=== PATIENT | female | born 1990 | race Caucasian/White ===

== ENCOUNTER → 2017-01-22 | Outpatient (CLI) | payer OTHER ==
[~2017-01-22] MED LIST: ALLEGRA180 MG PO; AMOXIL500 MG PO; BIRTH CONTROL1 EAC1 PO; GEODON60 MG PO; MOTRIN600 MG PO; PERCOCET 325 MG1 TAB PO; REMERON15 M1 PO; ZOFRAN4 MG PO; ZYRTEC10 M1 PO
== END | disposition home or self-care (01) ==
LOC: RAD 16:08
DX: J40 Bronchitis, not specified as acute or chronic (principal); F17.200 Nicotine dependence, unspecified, uncomplicated; J45.909 Unspecified asthma, uncomplicated

== ENCOUNTER → 2017-06-20 | Outpatient (CLI) | payer MEDICARE | END | disposition home or self-care (01) | LOC: LAB 14:21 | DX: Z51.81 Encounter for therapeutic drug level monitoring (principal); Z79.899 Other long term (current) drug therapy ==

== ENCOUNTER 2017-10-16 11:31 | Emergency (ER) | payer MEDICARE ==
[~2017-10-16] VITALS: Ht 165.1 cm; Wt 56.7 kg
[2017-10-16 11:31] VITALS: BP 116/79
== END 2017-10-16 14:05 | disposition home or self-care (01) ==
LOC: ED 11:31
DX: R21 Rash and other nonspecific skin eruption (principal); T78.40XA Allergy, unspecified, initial encounter; Z88.0 Allergy status to penicillin; Z88.1 Allergy status to other antibiotic agents; Z91.040 Latex allergy status; Z79.899 Other long term (current) drug therapy; Y92.9 Unspecified place or not applicable

== ENCOUNTER → 2017-12-24 | Outpatient (CLI) | payer MEDICARE, OTHER | END | disposition home or self-care (01) | LOC: LAB 13:46 | DX: Z51.81 Encounter for therapeutic drug level monitoring (principal); Z79.899 Other long term (current) drug therapy ==

== ENCOUNTER → 2018-03-18 | Outpatient (CLI) | payer MEDICARE ==
[2018-03-18 11:31] LABS: HEMATOCRIT 44.8 % (37.0-47.0); HEMOGLOBIN 15.1 g/dl (12.0-16.0); MEAN CELL VOLUME 88.2 fl (81.0-99.0); MEAN CORPUSCULAR HGB 29.7 pg (27.0-31.0); MEAN CORPUSCULAR HGB CONC 33.7 g/dl (33.0-37.0); MEAN PLATELET VOLUME 14.1 fl (9.6-12.3); RED BLOOD COUNT 5.08 10*6/uL (4.10-5.10); RED CELL DISTRI WIDTH 12.3 % (0-14.5); WHITE BLOOD COUNT 7.8 10*3/uL (4.8-10.8)
[2018-03-18 11:43] LABS: ALBUMIN 3.6 gm/dl (3.1-4.5); BUN 8 mg/dl (7-24); CHLORIDE 109 mmol/L (98-107); CHOLESTEROL 156 mg/dL (<200); CREATININE 0.89 mg/dL (0.55-1.02); POTASSIUM 3.5 mmol/L (3.5-5.1); SGOT/AST 8 IU/L (3-35); SGPT/ALT 20 U/L (12-78); SODIUM 141 mmol/L (136-145); TRIGLYCERIDES 117 mg/dl (<150); VLDL CHOLESTEROL 23 mg/dL (6-40)
[2018-03-18 11:47] LABS: ALKALINE PHOSPHATASE 52 U/L (45-117); CPK 33 U/L (26-192); HDL CHOLESTEROL 40 mg/dl (40-60); LDL CHOLESTEROL 93 mg/dL (9-159); TOTAL PROTEIN 7.4 gm/dL (6.4-8.2)
[2018-03-18 12:16] LABS: VITAMIN D, 25-HYDROXY 9.5 ng/mL (30-100)
[2018-03-19 08:07] LABS: RHEUMATOID ARTHRITIS FACTOR <10.0 IU/mL (0.0-13.9)
== END | disposition home or self-care (01) ==
LOC: LAB 10:57
PROVIDERS: Family Medicine
DX: Z13.220 Encounter for screening for lipoid disorders (principal); J45.909 Unspecified asthma, uncomplicated; E55.9 Vitamin D deficiency, unspecified; M79.10 Myalgia, unspecified site; R53.83 Other fatigue; M25.50 Pain in unspecified joint; Z79.899 Other long term (current) drug therapy

== ENCOUNTER → 2018-03-25 | Outpatient (CLI) | payer MEDICARE | END | disposition home or self-care (01) | LOC: LAB 15:37 | DX: R76.0 Raised antibody titer (principal) ==

== ENCOUNTER → 2018-07-06 | Outpatient (CLI) | payer MEDICARE ==
[2018-07-06 12:13] LABS: BASO % 0.7 % (0.0-1.0); EOS # 0.6 10*3/uL (0.0-0.4); EOS % 9.3 % (1.0-4.0); HEMATOCRIT 44.4 % (37.0-47.0); HEMOGLOBIN 14.6 g/dl (12.0-16.0); LYMPH # 2.1 10*3/uL (1.3-4.4); LYMPH % 34.6 % (27.0-41.0); MEAN CELL VOLUME 89.7 fl (81.0-99.0); MEAN CORPUSCULAR HGB 29.5 pg (27.0-31.0); MEAN CORPUSCULAR HGB CONC 32.9 g/dl (33.0-37.0); MEAN PLATELET VOLUME 13.6 fl (9.6-12.3); MONO # 0.5 10*3/uL (0.1-1.0); MONO % 7.5 % (3.0-9.0); NEUT # 2.9 10*3/uL (2.3-7.9); NEUT % 47.6 % (47.0-73.0); PLATELET COUNT AUTOMATED 128 10*3/uL (130-400); RED BLOOD COUNT 4.95 10*6/uL (4.10-5.10); RED CELL DISTRI WIDTH 12.4 % (0-14.5); WHITE BLOOD COUNT 6.1 10*3/uL (4.8-10.8)
[2018-07-06 12:42] LABS: ALBUMIN 3.8 gm/dl (3.1-4.5); ALKALINE PHOSPHATASE 55 U/L (45-117); BUN 8 mg/dl (7-24); CREATININE 0.85 mg/dL (0.55-1.02); SGOT/AST 10 IU/L (3-35); SGPT/ALT 20 U/L (12-78); TOTAL PROTEIN 7.2 gm/dL (6.4-8.2)
[2018-07-06 12:54] LABS: CHLORIDE 110 mmol/L (98-107); POTASSIUM 4.1 mmol/L (3.5-5.1); SODIUM 143 mmol/L (136-145)
== END | disposition home or self-care (01) ==
LOC: LAB 11:35
PROVIDERS: Family Medicine
DX: E22.1 Hyperprolactinemia (principal); F41.1 Generalized anxiety disorder

== ENCOUNTER 2018-09-04 00:35 | Emergency (ER) | payer MEDICARE ==
[~2018-09-04] VITALS: Ht 149.8 cm; Wt 54.4 kg
[2018-09-04] MEDS ORDERED: SPRINTEC 35 MCG1 TA1 PO (01:11)
== END 2018-09-04 01:52 | disposition home or self-care (01) ==
LOC: ED 00:35
DX: F45.8 Other somatoform disorders (principal); K21.9 Gastro-esophageal reflux disease without esophagitis; Z88.0 Allergy status to penicillin; Z88.1 Allergy status to other antibiotic agents; Z91.018 Allergy to other foods; Z91.040 Latex allergy status; Z79.899 Other long term (current) drug therapy

== ENCOUNTER 2019-01-11 16:44 | Emergency (ER) | payer MEDICARE ==
[~2019-01-11] VITALS: Ht 152.4 cm; Wt 52.2 kg
[~2019-01-11 16:44] MED LIST changes: +SPRINTEC 35 MCG1 TA1 PO
[2019-01-11 16:45] VITALS: BP 137/86
[2019-01-11] MEDS ORDERED: MEDROL DOSEPAK4 MG PO (18:27)
== END 2019-01-11 18:39 | disposition home or self-care (01) ==
LOC: ED 16:44
DX: T78.1XXA Other adverse food reactions, not elsewhere classified, initial encounter (principal); R07.0 Pain in throat; Z88.0 Allergy status to penicillin; Z88.1 Allergy status to other antibiotic agents; Z91.018 Allergy to other foods; Z88.8 Allergy status to other drugs, medicaments and biological substances; Z91.040 Latex allergy status; Z79.899 Other long term (current) drug therapy; X58.XXXA Exposure to other specified factors, initial encounter

== ENCOUNTER 2019-02-03 23:35 | Emergency (ER) | payer MEDICARE ==
[~2019-02-03] VITALS: Ht 152.4 cm; Wt 51.3 kg
[~2019-02-03 23:35] MED LIST changes: +MEDROL DOSEPAK4 MG PO
[2019-02-03 23:37] VITALS: BP 156/88
[2019-02-04] MEDS ORDERED: ALLEGRA ALLERG180 M2 PO (00:47)
[2019-02-04] MEDS ORDERED: PROAIR HFA8.5 GM INH (00:47)
== END 2019-02-04 01:04 | disposition home or self-care (01) ==
LOC: ED 23:35
DX: F41.9 Anxiety disorder, unspecified (principal); R07.0 Pain in throat; Z88.0 Allergy status to penicillin; Z88.1 Allergy status to other antibiotic agents; Z91.018 Allergy to other foods; Z88.8 Allergy status to other drugs, medicaments and biological substances; Z91.040 Latex allergy status; Z79.899 Other long term (current) drug therapy

== ENCOUNTER 2019-02-11 17:18 | Emergency (ER) | payer MEDICARE ==
[~2019-02-11] VITALS: Ht 152.4 cm; Wt 51.3 kg
[~2019-02-11 17:18] MED LIST changes: +ALLEGRA ALLERG180 M2 PO; +PROAIR HFA8.5 GM INH
[2019-02-11 17:20] VITALS: BP 153/86
== END 2019-02-11 19:15 | disposition home or self-care (01) ==
LOC: ED 17:18
DX: S40.861A Insect bite (nonvenomous) of right upper arm, initial encounter (principal); R11.0 Nausea; R07.0 Pain in throat; Z88.0 Allergy status to penicillin; Z88.1 Allergy status to other antibiotic agents; Z91.018 Allergy to other foods; Z91.040 Latex allergy status; Z88.8 Allergy status to other drugs, medicaments and biological substances; Z79.899 Other long term (current) drug therapy; W57.XXXA Bitten or stung by nonvenomous insect and other nonvenomous arthropods, initial encounter; Y93.89 Activity, other specified; Y92.89 Other specified places as the place of occurrence of the external cause; Y99.8 Other external cause status

== ENCOUNTER 2019-02-12 21:54 | Emergency (ER) | payer MEDICARE ==
[~2019-02-12] VITALS: Ht 152.4 cm; Wt 51.3 kg
[2019-02-12 22:02] VITALS: BP 151/93
== END 2019-02-12 23:55 | disposition home or self-care (01) ==
LOC: ED 21:54
DX: T78.49XA Other allergy, initial encounter (principal); R11.2 Nausea with vomiting, unspecified; R07.0 Pain in throat; Z91.018 Allergy to other foods; Z88.0 Allergy status to penicillin; Z88.1 Allergy status to other antibiotic agents; Z91.040 Latex allergy status; Z88.8 Allergy status to other drugs, medicaments and biological substances; Z79.899 Other long term (current) drug therapy; X58.XXXA Exposure to other specified factors, initial encounter

== ENCOUNTER 2019-02-14 16:48 | Emergency (ER) | payer MEDICARE ==
[~2019-02-14] VITALS: Ht 152.4 cm; Wt 50.3 kg
[2019-02-14 20:03] VITALS: BP 150/90
[2019-02-14] MEDS ORDERED: MEDROL DOSEPAK4 MG PO (20:21)
== END 2019-02-14 20:25 | disposition home or self-care (01) ==
LOC: ED 16:48
DX: J45.909 Unspecified asthma, uncomplicated (principal); T78.1XXA Other adverse food reactions, not elsewhere classified, initial encounter; R06.02 Shortness of breath; R22.0 Localized swelling, mass and lump, head; F17.200 Nicotine dependence, unspecified, uncomplicated; Z79.899 Other long term (current) drug therapy; Z88.0 Allergy status to penicillin; Z88.1 Allergy status to other antibiotic agents; Z91.018 Allergy to other foods; Z91.040 Latex allergy status; Z88.8 Allergy status to other drugs, medicaments and biological substances; X58.XXXA Exposure to other specified factors, initial encounter

== ENCOUNTER 2019-02-15 12:50 | Emergency (ER) | payer MEDICARE ==
[~2019-02-15] VITALS: Ht 152.4 cm; Wt 50.3 kg
[2019-02-15 12:54] VITALS: BP 148/96
== END 2019-02-15 14:40 | disposition home or self-care (01) ==
LOC: ED 12:50
DX: R23.2 Flushing (principal); R22.0 Localized swelling, mass and lump, head; L53.9 Erythematous condition, unspecified; Z88.0 Allergy status to penicillin; Z88.1 Allergy status to other antibiotic agents; Z91.040 Latex allergy status; Z91.018 Allergy to other foods; Z88.8 Allergy status to other drugs, medicaments and biological substances; Z79.899 Other long term (current) drug therapy

== ENCOUNTER 2019-02-17 07:55 | Emergency (ER) | payer MEDICARE ==
[~2019-02-17] VITALS: Ht 152.4 cm; Wt 50.3 kg
[2019-02-17 07:57] VITALS: BP 122/84
[2019-02-17] MEDS ORDERED: BREO ELLIPTA 11 EACH INH (08:48)
== END 2019-02-17 09:13 | disposition home or self-care (01) ==
LOC: ED 07:55
DX: R09.81 Nasal congestion (principal); Z88.0 Allergy status to penicillin; Z88.1 Allergy status to other antibiotic agents; Z91.018 Allergy to other foods; Z91.040 Latex allergy status; Z79.899 Other long term (current) drug therapy

== ENCOUNTER 2019-02-25 00:50 | Emergency (ER) | payer MEDICARE ==
[~2019-02-25] VITALS: Ht 152.4 cm; Wt 49.0 kg
[~2019-02-25 00:50] MED LIST changes: +BREO ELLIPTA 11 EACH INH
[2019-02-25 00:51] VITALS: BP 149/10
== END 2019-02-25 01:36 | disposition home or self-care (01) ==
LOC: ED 00:50
DX: T78.40XA Allergy, unspecified, initial encounter (principal); Z79.899 Other long term (current) drug therapy; Z88.0 Allergy status to penicillin; Z88.1 Allergy status to other antibiotic agents; Z91.040 Latex allergy status; Z91.018 Allergy to other foods; Y92.89 Other specified places as the place of occurrence of the external cause

== ENCOUNTER 2019-03-05 01:17 | Emergency (ER) | payer MEDICARE ==
[~2019-03-05] VITALS: Ht 152.4 cm; Wt 49.0 kg
[2019-03-05 01:18] VITALS: BP 152/91
== END 2019-03-05 02:16 | disposition home or self-care (01) ==
LOC: ED 01:17
DX: J06.9 Acute upper respiratory infection, unspecified (principal); F41.9 Anxiety disorder, unspecified; F17.200 Nicotine dependence, unspecified, uncomplicated; Z91.19 Patient's noncompliance with other medical treatment and regimen; Z88.0 Allergy status to penicillin; Z88.1 Allergy status to other antibiotic agents; Z91.018 Allergy to other foods; Z88.8 Allergy status to other drugs, medicaments and biological substances; Z79.899 Other long term (current) drug therapy

== ENCOUNTER 2019-03-08 16:01 | Emergency (ER) | payer MEDICARE ==
[~2019-03-08] VITALS: Ht 152.4 cm; Wt 49.0 kg
[2019-03-08 16:01] VITALS: BP 143/80
== END 2019-03-08 17:35 | disposition home or self-care (01) ==
LOC: ED 16:01
DX: S60.467A Insect bite (nonvenomous) of left little finger, initial encounter (principal); Z88.0 Allergy status to penicillin; Z88.1 Allergy status to other antibiotic agents; Z91.018 Allergy to other foods; Z91.040 Latex allergy status; Z79.899 Other long term (current) drug therapy; W57.XXXA Bitten or stung by nonvenomous insect and other nonvenomous arthropods, initial encounter; Y93.89 Activity, other specified; Y92.89 Other specified places as the place of occurrence of the external cause; Y99.8 Other external cause status

== ENCOUNTER 2019-03-10 19:06 | Emergency (ER) | payer MEDICARE ==
[~2019-03-10] VITALS: Wt 49.0 kg
[2019-03-10 19:21] VITALS: BP 128/74
== END 2019-03-10 19:48 | disposition home or self-care (01) ==
LOC: ED 19:06
DX: Z00.00 Encounter for general adult medical examination without abnormal findings (principal); R22.0 Localized swelling, mass and lump, head; Z79.899 Other long term (current) drug therapy; Z88.0 Allergy status to penicillin; Z88.1 Allergy status to other antibiotic agents; Z91.018 Allergy to other foods; Z91.040 Latex allergy status

== ENCOUNTER 2019-03-15 03:52 | Emergency (ER) | payer MEDICARE ==
[~2019-03-15] VITALS: Ht 152.4 cm; Wt 47.6 kg
[2019-03-15 03:53] VITALS: BP 144/93
[2019-03-15] MEDS ORDERED: XANAX0.25 MG PO (04:51)
== END 2019-03-15 05:10 | disposition home or self-care (01) ==
LOC: ED 03:52
DX: F41.1 Generalized anxiety disorder (principal); F41.0 Panic disorder [episodic paroxysmal anxiety]; Z79.899 Other long term (current) drug therapy; F20.0 Paranoid schizophrenia; F12.10 Cannabis abuse, uncomplicated

== ENCOUNTER 2019-03-24 01:59 | Emergency (ER) | payer MEDICARE ==
[~2019-03-24] VITALS: Ht 152.4 cm; Wt 47.6 kg
[~2019-03-24 01:59] MED LIST changes: +XANAX0.25 MG PO
[2019-03-24 02:01] VITALS: BP 139/95
== END 2019-03-24 02:48 | disposition home or self-care (01) ==
LOC: ED 01:59
DX: J02.9 Acute pharyngitis, unspecified (principal); J45.909 Unspecified asthma, uncomplicated; F17.200 Nicotine dependence, unspecified, uncomplicated; Z88.0 Allergy status to penicillin; Z88.1 Allergy status to other antibiotic agents; Z91.018 Allergy to other foods; Z91.040 Latex allergy status; Z88.8 Allergy status to other drugs, medicaments and biological substances; Z79.899 Other long term (current) drug therapy

== ENCOUNTER 2019-04-24 17:04 | Emergency (ER) | payer MEDICARE ==
[~2019-04-24] VITALS: Ht 152.4 cm; Wt 49.4 kg
[2019-04-24 17:06] VITALS: BP 146/98
== END 2019-04-24 18:00 | disposition home or self-care (01) ==
LOC: ED 17:04
DX: T78.49XA Other allergy, initial encounter (principal); Z91.018 Allergy to other foods; Z91.048 Other nonmedicinal substance allergy status; Z88.0 Allergy status to penicillin; Z88.1 Allergy status to other antibiotic agents; Z91.012 Allergy to eggs; Z91.013 Allergy to seafood; Z91.011 Allergy to milk products; Z91.040 Latex allergy status; Z91.010 Allergy to peanuts; Z79.899 Other long term (current) drug therapy; X58.XXXA Exposure to other specified factors, initial encounter

== ENCOUNTER 2019-05-23 05:03 | Emergency (ER) | payer MEDICARE ==
[~2019-05-23] VITALS: Ht 152.4 cm; Wt 47.6 kg
[2019-05-23 05:04] VITALS: BP 130/84
[2019-05-23 05:49] LABS: BILIRUBIN NEGATIVE (NEGATIVE); BLOOD NEGATIVE (NEGATIVE); CLARITY SL CLOUDY (CLEAR); COLOR YELLOW (YELLOW); GLUCOSE NEGATIVE (NEGATIVE); KETONE NEGATIVE (NEGATIVE); LEUKO ESTERASE NEGATIVE (NEGATIVE); NITRITE NEGATIVE (NEGATIVE); UROBILINOGEN 0.2 E.U./dl (0.2-1.0)
[2019-05-23 06:01] LABS: BACTERIA 1+; RBC 0-2 rbc/hpf (0-2)
== END 2019-05-23 06:25 | disposition home or self-care (01) ==
LOC: ED 05:03
PROVIDERS: Emergency Medicine
DX: R19.7 Diarrhea, unspecified (principal); R11.0 Nausea; J45.909 Unspecified asthma, uncomplicated; K21.9 Gastro-esophageal reflux disease without esophagitis; F17.200 Nicotine dependence, unspecified, uncomplicated; Z91.018 Allergy to other foods; Z88.0 Allergy status to penicillin; Z88.1 Allergy status to other antibiotic agents; Z91.012 Allergy to eggs; Z91.013 Allergy to seafood; Z91.040 Latex allergy status; Z91.010 Allergy to peanuts; Z79.899 Other long term (current) drug therapy

== ENCOUNTER 2020-12-24 00:25 | Emergency (ER) | payer MEDICARE ==
[~2020-12-24] VITALS: Ht 152.4 cm; Wt 47.6 kg
[2020-12-24 00:38] VITALS: BP 148/82
== END 2020-12-24 02:03 | disposition home or self-care (01) ==
LOC: ED 00:25
DX: S90.122A Contusion of left lesser toe(s) without damage to nail, initial encounter (principal); Z91.018 Allergy to other foods; Z88.0 Allergy status to penicillin; Z88.1 Allergy status to other antibiotic agents; Z88.8 Allergy status to other drugs, medicaments and biological substances; Z91.012 Allergy to eggs; Z91.013 Allergy to seafood; Z79.899 Other long term (current) drug therapy; W22.8XXA Striking against or struck by other objects, initial encounter; Y93.89 Activity, other specified; Y92.89 Other specified places as the place of occurrence of the external cause; Y99.8 Other external cause status

== ENCOUNTER 2022-02-17 03:47 | Emergency (ER) | payer MEDICARE, MEDICAID ==
[~2022-02-17] VITALS: Ht 154.9 cm; Wt 46.7 kg
[2022-02-17 03:59] VITALS: BP 146/98
[2022-02-17] MEDS ORDERED: CLINDAMYCIN HC300 MG PO (04:08)
== END 2022-02-17 04:43 | disposition home or self-care (01) ==
LOC: ED 03:47
DX: K02.9 Dental caries, unspecified (principal); H92.02 Otalgia, left ear; Z88.0 Allergy status to penicillin; Z88.1 Allergy status to other antibiotic agents; Z91.010 Allergy to peanuts; Z91.011 Allergy to milk products; Z91.012 Allergy to eggs; Z91.013 Allergy to seafood; Z91.018 Allergy to other foods; Z79.899 Other long term (current) drug therapy; Z90.89 Acquired absence of other organs

== ENCOUNTER 2024-08-21 19:59 | Emergency (ER) | payer OTHER ==
[~2024-08-21] VITALS: Ht 157.4 cm; Wt 56.2 kg
[~2024-08-21 19:59] MED LIST changes: +CLINDAMYCIN HC300 MG PO
[2024-08-21 20:10] VITALS: BP 168/94
[2024-08-21] MEDS ORDERED: AIRSUPRA 90-810.7 GM INH (20:26)
== END 2024-08-21 20:41 | disposition home or self-care (01) ==
LOC: ED 19:59
DX: Z34.91 Encounter for supervision of normal pregnancy, unspecified, first trimester (principal); Z91.048 Other nonmedicinal substance allergy status; Z88.0 Allergy status to penicillin; Z91.018 Allergy to other foods; Z88.1 Allergy status to other antibiotic agents; Z91.012 Allergy to eggs; Z91.040 Latex allergy status; Z91.010 Allergy to peanuts; Z91.011 Allergy to milk products; Z79.899 Other long term (current) drug therapy; Z3A.01 Less than 8 weeks gestation of pregnancy

== ENCOUNTER → 2024-10-10 | Outpatient (CLI) | payer OTHER ==
[~2024-10-10] MED LIST changes: +AIRSUPRA 90-810.7 GM INH
== END | disposition home or self-care (01) ==
LOC: US 10:30
PROVIDERS: ATTEND Nurse Practitioner Women's Health
DX: Z34.01 Encounter for supervision of normal first pregnancy, first trimester (principal); Z3A.10 10 weeks gestation of pregnancy

== ENCOUNTER → 2024-11-07 | Outpatient (CLI) | payer OTHER | END | disposition home or self-care (01) | LOC: CARD 10:29 | PROVIDERS: ATTEND Nurse Practitioner Women's Health | DX: R00.2 Palpitations (principal) ==

== ENCOUNTER → 2024-11-20 | Outpatient (CLI) | payer OTHER | END | disposition home or self-care (01) | LOC: CARD 13:42 | PROVIDERS: ATTEND Internal Medicine Cardiovascular Disease | DX: R00.2 Palpitations (principal); R00.0 Tachycardia, unspecified; Z34.92 Encounter for supervision of normal pregnancy, unspecified, second trimester; Z3A.00 Weeks of gestation of pregnancy not specified ==

== ENCOUNTER 2025-02-03 16:19 | Emergency (ER) | payer OTHER ==
[~2025-02-03] VITALS: Wt 59.9 kg
[2025-02-03 16:44] VITALS: BP 140/91
[2025-02-03] MEDS ORDERED: OMNICEF300 MG PO (16:59)
== END 2025-02-03 17:08 | disposition home or self-care (01) ==
LOC: ED 16:19
DX: O26.892 Other specified pregnancy related conditions, second trimester (principal); H92.02 Otalgia, left ear; K21.9 Gastro-esophageal reflux disease without esophagitis; O99.512 Diseases of the respiratory system complicating pregnancy, second trimester; J45.909 Unspecified asthma, uncomplicated; O99.342 Other mental disorders complicating pregnancy, second trimester; F41.9 Anxiety disorder, unspecified; F32.A Depression, unspecified; F20.9 Schizophrenia, unspecified; Z91.018 Allergy to other foods; Z88.0 Allergy status to penicillin; Z88.1 Allergy status to other antibiotic agents; Z91.010 Allergy to peanuts; Z91.040 Latex allergy status; Z91.011 Allergy to milk products; Z91.012 Allergy to eggs; Z88.8 Allergy status to other drugs, medicaments and biological substances; Z3A.27 27 weeks gestation of pregnancy

== ENCOUNTER 2025-02-10 01:13 | Emergency (ER) | payer OTHER ==
[~2025-02-10] VITALS: Ht 157.4 cm; Wt 59.0 kg
[~2025-02-10 01:13] MED LIST changes: +OMNICEF300 MG PO
[2025-02-10 01:42] VITALS: BP 153/94
[2025-02-10] MEDS ORDERED: ZITHROMAX250 MG PO (01:46)
[2025-02-10] MEDS ORDERED: AZITHROMYCIN 250 MG TAB PO ONE (01:50)
== END 2025-02-10 01:57 | disposition home or self-care (01) ==
LOC: ED 01:13
DX: H66.92 Otitis media, unspecified, left ear (principal); Z91.030 Bee allergy status; Z91.048 Other nonmedicinal substance allergy status; Z88.0 Allergy status to penicillin; Z88.1 Allergy status to other antibiotic agents; Z91.018 Allergy to other foods; Z91.012 Allergy to eggs; Z91.013 Allergy to seafood; Z91.010 Allergy to peanuts; Z79.899 Other long term (current) drug therapy

== ENCOUNTER → 2025-03-07 | Outpatient (CLI) | payer OTHER ==
[~2025-03-07] MED LIST changes: +ZITHROMAX250 MG PO
[2025-03-07 11:23] LABS: MEAN CELL VOLUME 91.5 fl (81.0-99.0); MEAN CORPUSCULAR HGB 29.4 pg (27.0-31.0); NUCLEATED RED BLOOD CELL 0.0 % (0.0-0.0); NUCLEATED RED BLOOD CELL 0.0 10*3/uL (0.0-0.0); PLATELET COUNT AUTOMATED 89 10*3/uL (130-400); RED CELL DISTRI WIDTH 14.0 % (0-14.5)
[2025-03-07 11:36] LABS: ACT PARTIAL THROMBO TIME 25.7 SECONDS (20.0-32.1)
[2025-03-07 11:43] LABS: LDH 138 U/L (120-246); SGPT/ALT 12 U/L (5-49)
[2025-03-07 11:44] LABS: MANUAL DIFF REFLEX YES
[2025-03-07 11:47] LABS: BUN < 5 mg/dl (9-23)
[2025-03-07 11:50] LABS: PLATELET SUFFICIENCY LOW (NORMAL)
== END | disposition home or self-care (01) ==
LOC: LAB 10:27
PROVIDERS: ATTEND Obstetrics & Gynecology
DX: O13.3 Gestational [pregnancy-induced] hypertension without significant proteinuria, third trimester (principal); O99.113 Other diseases of the blood and blood-forming organs and certain disorders involving the immune mechanism complicating pregnancy, third trimester; D69.6 Thrombocytopenia, unspecified; Z3A.30 30 weeks gestation of pregnancy

== ENCOUNTER → 2025-03-09 | Outpatient (CLI) | payer OTHER ==
[2025-03-09 12:03] LABS: BILIRUBIN Negative (Negative); BLOOD Trace-Lysed (Negative); CLARITY Cloudy (Clear); COLOR Yellow (Yellow); KETONE Negative (Negative); LEUKO ESTERASE 3+ (Negative); NITRITE Negative (Negative); PH 7.5 (4.5-8.0); SPECIFIC GRAVITY <= 1.005 (1.001-1.030); UROBILINOGEN 0.2 E.U./dl (0.0-1.0)
[2025-03-09 12:21] LABS: BACTERIA 2+; WBC TNTC wbc/hpf (0-5)
[2025-03-09 12:22] LABS: YEAST 4+
== END | disposition home or self-care (01) ==
LOC: LAB 11:17
PROVIDERS: ATTEND Obstetrics & Gynecology
DX: O99.119 Other diseases of the blood and blood-forming organs and certain disorders involving the immune mechanism complicating pregnancy, unspecified trimester (principal); O13.3 Gestational [pregnancy-induced] hypertension without significant proteinuria, third trimester; D69.6 Thrombocytopenia, unspecified; Z3A.30 30 weeks gestation of pregnancy; Z79.899 Other long term (current) drug therapy

== ENCOUNTER → 2025-03-26 | Outpatient (CLI) | payer OTHER ==
[2025-03-26 16:27] LABS: MEAN CELL VOLUME 95.0 fl (81.0-99.0); MEAN CORPUSCULAR HGB 31.3 pg (27.0-31.0); NUCLEATED RED BLOOD CELL 0.0 % (0.0-0.0); NUCLEATED RED BLOOD CELL 0.0 10*3/uL (0.0-0.0); PLATELET COUNT AUTOMATED 85 10*3/uL (130-400); RED CELL DISTRI WIDTH 14.9 % (0-14.5)
[2025-03-26 16:47] LABS: BUN 6 mg/dl (9-23); MANUAL DIFF REFLEX YES; SGPT/ALT 13 U/L (5-49)
[2025-03-26 16:49] LABS: PLATELET SUFFICIENCY LOW (NORMAL)
== END | disposition home or self-care (01) ==
LOC: LAB 16:01
PROVIDERS: ATTEND Obstetrics & Gynecology Maternal & Fetal Medicine
DX: O13.3 Gestational [pregnancy-induced] hypertension without significant proteinuria, third trimester (principal); Z3A.34 34 weeks gestation of pregnancy